=== PATIENT | female | born 1960 | race Caucasian/White ===

== ENCOUNTER 2020-12-18 20:33 | Inpatient (IN) | payer BC ==
[~2020-12-18] VITALS: Ht 154.9 cm; Wt 60.8 kg
[~2020-12-18 20:33] MED LIST: ACET325; ACYC800 PO; ALBU90OI INH; ASPI81CH PO; ASPI81EC; CITA20 PO; CRUTCH4 USE; CYCL10 PO; ESCI20; ESTR1; HYDACE5 PO; MULVITMIND; NAPR500 PO; NAPR550 PO; OMEP10ER; OMEP20ER PO; Prednisone50 MG PO; RXOXYACE PO; TIOT18 IH; Vistaril50 MG PO; Zithromax250 MG PO
[2020-12-18 21:10] LABS: BASOPHILS ABSOLUTE AUTO 0.04 K/mm3 (0.00-0.23); BASOPHILS PERCENT AUTO 0 % (0-2); EOSINOPHILS ABSOLUTE AUTO 0.08 K/mm3 (0.00-0.68); EOSINOPHILS PERCENT AUTO 1 % (0-6); Hematocrit 47.1 % (33.0-51.0); Hemoglobin 15.4 g/dL (11.5-16.0); IMMATURE GRAN ABSOLUTE AUTO 0.03 K/mm3 (0.00-0.10); IMMATURE GRAN PERCENT AUTO 0 % (0-1); LYMPHOCYTES ABSOLUTE AUTO 3.37 K/mm3 (0.84-5.20); LYMPHOCYTES PERCENT AUTO 31 % (21-46); MONOCYTES ABSOLUTE AUTO 0.77 K/mm3 (0.16-1.47); MONOCYTES PERCENT AUTO 7 % (4-13); Mean Corpuscular HGB 28.4 pg (26.0-34.0); Mean Corpuscular HGB Conc 32.7 g/dL (31.5-36.5); Mean Corpuscular Volume 87 fL (80-100); Mean Platelet Volume 10.3 fL (9.1-12.4); NEUTROPHILS ABSOLUTE AUTO 6.66 K/mm3 (1.96-9.15); NEUTROPHILS PERCENT AUTO 61 % (41-73); Platelet Count 314 K/mm3 (150-400); RDW Coefficient Variation 14.3 % (11.7-14.2); RDW Standard Deviation 45.6 fL (35.1-46.3); Red Blood Cell Count 5.43 M/mm3 (3.80-5.20); White Blood Cell Count 10.95 K/mm3 (4.00-11.30)
[2020-12-18 21:30] LABS: Alanine Aminotransfer (ALT/SGP 19 U/L (12-78); Albumin/Globulin Ratio 1.2 (0.8-1.8); Alk Phos 93 U/L (50-136); Anion Gap 7 mmol/L (6-16); Aspartate Aminotrans (AST/SGOT 13 U/L (12-37); Bilirubin, Total 0.3 mg/dL (0.1-1.0); Blood Urea Nitrogen 15 mg/dL (8-24); Bun/Creatinine Ratio 24.2 (12.0-20.0); CO2, Blood 23 mmol/L (21-32); Calcium, Blood 9.5 mg/dL (8.5-10.1); Chloride, Blood 109 mmol/L (98-108); Creatinine, Blood 0.62 mg/dL (0.40-1.00); Globulin, Blood 3.3 g/dL (2.2-4.0); Glomerular Filtration Rate >60 (60-); Glucose, Blood 113 mg/dL (70-99); Potassium, Blood 3.9 mmol/L (3.5-5.5); Sodium, Blood 139 mmol/L (136-145); Total Protein, Blood 7.3 g/dL (6.4-8.2); Troponin I <0.015 ng/mL (0.000-0.040)
[2020-12-19 01:00] LABS: SARS-Cov-2 (COVID-19) PCR, MMC NEGATIVE (NEGATIVE)
[2020-12-19 01:03] LABS: Source, Urine Clean Catch
[2020-12-19 01:05] LABS: Bilirubin, Urine Neg (Neg); Blood, Urine Neg (Neg); Glucose Qualitative, Urine Neg (Neg); Ketones, Urine Neg (Neg); Leukocyte Esterase, Urine Neg (Neg); Nitrite, Urine Neg (Neg); Protein, Urine Neg (Neg); Urobilinogen, Urine NORM (Normal)
[2020-12-19 01:08] LABS: Appearance, Urine Clear (Clear); Color, Urine Yellow (P-Yellow)
--- NOTE | 2020-12-19 06:12 | NUR ---
PATIENTS IV INFILTRATED, NEW IV STARTED IN LH/20G. PATIENT TOLERATED IT WELL. CALL LIGHT WITHIN REACH.
--- NOTE | 2020-12-19 07:40 | NUR ---
PT AMBULATED WITH SBA TO BATHROOM. PT REFUSED TO USE WALKER OR W/C TO BATHROOM. PT VERY UPSET WHEN RN OFFERED TO USE W/C OR WALKER WHEN PT IS UP AND MOVING. PT FEARFUL OF LOOSING HER INDEPENDENCE. PT GETS AGGITATED WHENEVER PT FEELS THAT SHE IS LOOSING HER ABILITY TO WALK/MOVE INDEPENDENTLY, OR WITH TOO MUCH ASSISTANCE. PT WILL SETTLE DOWN AFTER RN ENCOURAGES PT WITH WORDS OF AFFIRMATION AND REMINDING PT THAT SHE IS DOING A GREAT JOB BEING MINDFUL OF HER ABILITY TO WALK/MOVE INDEPENDTLY. PT IS AOX3 AND WILL CALL FOR HELP VIA CALL LIGHT WHENEVER SHE NEEDS ASSISTANCE TO AMBULATE OR MOVE OUT OF BED. CALL LIGHT WITHIN REACH.
--- NOTE | 2020-12-19 08:53 | NUR ---
PT AMBULATED TO BATHROOM WITH 2 STAFF SBA. PT AMBULATES INDEPENDENTLY WITH STAFF TO STANDBY FOR ASSISTANCE IF NEEDED. PT DID NOT EAT ANY BREAKFAST THIS MORNING. PT COMMUNICATES WELL. CALL LIGHT WITHIN REACH.
[2020-12-19 09:30] LABS: BASOPHILS ABSOLUTE AUTO 0.03 K/mm3 (0.00-0.23); BASOPHILS PERCENT AUTO 0 % (0-2); EOSINOPHILS ABSOLUTE AUTO 0.03 K/mm3 (0.00-0.68); EOSINOPHILS PERCENT AUTO 0 % (0-6); Hematocrit 45.1 % (33.0-51.0); Hemoglobin 14.7 g/dL (11.5-16.0); IMMATURE GRAN ABSOLUTE AUTO 0.02 K/mm3 (0.00-0.10); IMMATURE GRAN PERCENT AUTO 0 % (0-1); LYMPHOCYTES PERCENT AUTO 25 % (21-46); MONOCYTES ABSOLUTE AUTO 0.73 K/mm3 (0.16-1.47); MONOCYTES PERCENT AUTO 7 % (4-13); Mean Corpuscular HGB 28.4 pg (26.0-34.0); Mean Corpuscular HGB Conc 32.6 g/dL (31.5-36.5); Mean Corpuscular Volume 87 fL (80-100); Mean Platelet Volume 10.5 fL (9.1-12.4); NEUTROPHILS ABSOLUTE AUTO 7.01 K/mm3 (1.96-9.15); NEUTROPHILS PERCENT AUTO 67 % (41-73); Platelet Count 314 K/mm3 (150-400); RDW Coefficient Variation 14.2 % (11.7-14.2); RDW Standard Deviation 45.5 fL (35.1-46.3); Red Blood Cell Count 5.17 M/mm3 (3.80-5.20); White Blood Cell Count 10.42 K/mm3 (4.00-11.30)
--- NOTE | 2020-12-19 09:45 | NUR ---
PT TO MRI AT THIS TIME.
[2020-12-19 09:59] LABS: Alanine Aminotransfer (ALT/SGP 20 U/L (12-78); Albumin, Blood 3.7 g/dL (3.4-5.0); Albumin/Globulin Ratio 1.1 (0.8-1.8); Alk Phos 96 U/L (50-136); Anion Gap 5 mmol/L (6-16); Aspartate Aminotrans (AST/SGOT 9 U/L (12-37); Bilirubin, Total 0.4 mg/dL (0.1-1.0); Blood Urea Nitrogen 11 mg/dL (8-24); Bun/Creatinine Ratio 21.4 (12.0-20.0); CO2, Blood 26 mmol/L (21-32); Calcium, Blood 9.4 mg/dL (8.5-10.1); Chloride, Blood 111 mmol/L (98-108); Creatinine, Blood 0.51 mg/dL (0.40-1.00); Globulin, Blood 3.5 g/dL (2.2-4.0); Glomerular Filtration Rate >60 (60-); Glucose, Blood 140 mg/dL (70-99); Potassium, Blood 3.6 mmol/L (3.5-5.5); Sodium, Blood 142 mmol/L (136-145); Total Protein, Blood 7.2 g/dL (6.4-8.2)
--- NOTE | 2020-12-19 10:21 | NUR ---
PT BACK IN THE ROOM. CALL LIGHT WITHIN REACH.
--- NOTE | 2020-12-19 10:51 | NUR ---
PRODUCTION DEPARTMENT SUPERVISOR CAME TO VISIT PT TODAY, PT REFUSED TO HAVE TEST DONE, BUT LATER CHANGED HER MIND AND DECIDED TO HAVE ECHO WHILE HERE AT [facility]. PT VERY AGGITATED AND UPSET OVER THE PHONE WITH SON "RITO". PT KEEPS TELLING RITO OVER THE PHONE THAT SHE WANTS TO GO HOME. AFTER PT SPOKE TO RITO, RN WENT TO PT'S ROOM AND SPOKE TO PT. PT STATED TO RN THAT SHE HASN'T SLEPT FOR OVER A WEEK AND IS VERY TIRED. RN CALLED MD AND LEFT A MESSAGE TO MD FOR SOME ANTI-ANXIETY MEDICATION. RN WAITING FOR A CALL BACK FROM . [facility] WAS ALSO CALLED TO COME BACK AND GET ECHO DONE PER PT REQUEST. RITO ALSO CALLED TO SPEAK TO RN. RITO (PT'S SON) REQUEST TO HAVE SOME MEDICATION TO GIVE TO PT TO HELP WITH ANXIETY AND AGGITATION. PT NOW RESTING IN ROOM ATTEMPTING TO GET SOME SLEEP. CALL LIGHT WITHIN REACH. RN WAITING FOR MD TO CALL BACK FOR FURTHER ORDERS.
--- NOTE | 2020-12-19 11:08 | NUR ---
CHARGE COORDINATOR IN THE ROOM AT THIS TIME TO GET ECHO TEST DONE. PT COOPERATIVE.
--- NOTE | 2020-12-19 11:48 | NUR ---
echocardiogram complete
--- NOTE | 2020-12-19 11:51 | NUR ---
Introduction: PT was refered for visit by nursing staff. Assessment: PT was in a center room with no windows. PT presented upright, just finishing a meal with a jovial demeanor. PT related early life, growing up on [place] farm in [place]. 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 PT spoke of close family, mostly a sister, that she was in contact with. When asked about other family and children, PT would avoid the topic. PT was very calm and accepting of current situation throughout visit. PT showed hope and a willingness to heal, through colorful drawings that were shared and displayed on PT room door. Intervention: Offered prayer. Outcome: PT accepted prayer with gratitude. Built Spiritual Care Team relationship for follow-up. Follow-Up: As needed or requested.
--- NOTE | 2020-12-19 11:51 | NUR ---
MAINTAINABILITY ENGINEER DONE IN PT ROOM. PT AT THIS TIME EATING LUNCH. RN STILL WAITING FOR MD TO CALL BACK. RN EXPLAINED TO PATIENT THAT MD STILL NEEDS TO SEE HER AND SPEAK TO HER BEFORE MAKING ANY DESICIONS ON FURTHER PLANS WITH STAYING LONGER OR GOING HOME. CALL LIGHT WITHIN REACH. RN ATTEMPTED TO CALL MD FOR THE SECOND TIME AND REACHED VOICEMAIL.
--- NOTE | 2020-12-19 12:57 | NUR ---
PT REQUESTED TO GET SOME FRESH AIR AND ASKED IF SHE CAN SIT OUT IN THE LOBBY. PT WHEELED VIA W/C TO SIT OUT IN THE LOBBY WITH A STAFF TO SIT WITH PT WHILE PT RESTS AND WATCHES TV. PT AWAKE AND ALERT AND COOPERATIVE. WILL CONTINUE TO MONITOR.
--- NOTE | 2020-12-19 13:41 | NUR ---
DR DOUGLAS IN ROOM TO SPEAK WITH PT. NEW ORDERS GIVEN FOR SOME TESTS. PT STATED UNDERSTANDING. ORDERS FOR ANGIORAM AND PT EVAL GIVEN. PT DOES NOT WANT TO STAY OVER NIGHT TONIGHT BUT STATED PT WILL MORE THAN LIKELY STAY ANOTHER NIGHT BUT MD WILL EVALUATE PT AGAIN AFTER ALL THE TESTS ARE DONE. PT NOW RESTING IN THE ROOM, LYING DOWN ON THE BED WITH CALL LIGHT WITHIN REACH.
--- NOTE | 2020-12-19 13:59 | NUR ---
COST ANALYST IN ROOM AT THIS TIME TO VISIT WITH PATIENT.
--- NOTE | 2020-12-19 14:21 | NUR ---
PHYSICAL THERAPY IN ROOM AT THIS TIME TO SEE PT.
--- NOTE | 2020-12-19 14:48 | NUR ---
Patient is sitting up in bed and alert. Patient tells me about her "mini strokes and possible surgery that she may be facing. She talks about her spouse's recent penitentiary from [facility] and their plans to travel and so it is important for her that she recover well. Patient has a very strong Adventist anne and is encouraged by conversation centered around the Bible and by prayer. I provide therapeutic listening, pastoral crisis counselor, recitation of scripture and prayer. Patient responds well and shows signs of being encouraged in her anne. I will continue to remain available to patient and family.
--- NOTE | 2020-12-19 15:39 | NUR ---
PT VERY UPSET AT THIS TIME. INSTRUCTOR PHYSICAL EDUCATION IN THE ROOM. PT REFUSE TO HAVE ANY ANTI-ANXIETY MEDICATION AT THIS TIME.
--- NOTE | 2020-12-19 16:22 | NUR ---
PT LEFT AGAINST MEDICAL ADVICE TODAY AROUND 1600. PHYSICAL THERAPY/OCUPATIONAL THERAPY, CHAPLAINS, TERMINAL CARMAN, AND RN ALL TALKED WITH PT CONCERNING HER SAFETY. PT STILL REFUSES TO STAY IN THE HOSPITAL TONIGHT AND IS VERY ADAMANT ABOUT GOING HOME TONIGHT. DR. DOUGLAS WAS CALLED AND NURSING DIRECTOR SEARCH NOTIFIED ABOUT PT'S DECISION TO GO AMA. PT AWARE OF THE RISKS AT HOME AND PT AWARE OF THE OTHER OPTIONS GIVEN TO HER BY TERMINAL CARMAN. AFTER PT TALKED WITH HER FAMILY, PT STILL DECIDED TO GO HOME AND GO AMA. IV REMOVED AND PT WAS WHEELED OUT TO HER DAUGHTER WAITING OUTSIDE TO TAKE HER HOME. PT AWARE THAT CALLED IN A PRESCRIPTION TO HER PHARMACY AND RN SHARON WAS ABLE TO GET PT AN APPOINTMENT WITH NEW PCP NIR WILLOUGHBY AT 3PM ON SUNDAY 12/24.
--- NOTE | 2020-12-19 16:25 | NUR ---
Introduction: RN suggested a visit from the Plaster Caster. Assessment: 60 y/o female presented sitting up on the side of the bed with distressed look on her face. Pt begam to talk about,"I just want to go home one night". At that moment, a nurse walked in the room. While pt was speaking the nurse said,"here are your options" The nurse proceeded to speak to the pt about her options as the pt became agitated. The pt responded by saying, "I can't go to [facility]". The nurse paretted back what she heard the nurse say and then walked out to the nurse station to share what she was told by the pt. I walked back to the pt room. Pt began to cry repeating that she needs to go home. When inquired, Pt revealed that she had pets that were so important to her and she was concerned about them. Pt's nurse entered room. The son of the pt was called. The health of the pt was shared and pt and son made a decision. INtervention: Cultivated a relationship of care and support. Actively listened providing empathy and hope. Provided prayer according to pt anne tradition. Follow up for emotional and spiritual support as needed or requested.
--- NOTE | 2020-12-20 13:31 | NUR ---
PTS FAMILY (RITO MADRIGAL) CALLED BECAUSE RX'S WERE NOT AVAILABLE AT [facility] IN [place]. THIS RN SPOKE WITH RALPH IN CASE MANAGEMENT. DR. DOUGLAS GAVE APPROVAL TO CALL IN 3 PRESCRIPTIONS FOR PATIENT TO [facility] IN [place]. THIS RN CALLED IN ASPIRIN 324MG PO DAILY, PLAVIX 75MG PO DAILY, AND ATORVASTATIN 80MG PO DAILY. FAMILY WAS ALSO ASKING ABOUT PT GOING TO [facility] FOR PHYSICAL THERAPY. THIS RN EXPLAINED TO FAMILY AND SINCE PT LEFT AMA YESTERDAY, [facility] WOULDNT BE AN OPTION. FAMILY STATED THEY WILL BRING PATIENT BACK IN TO THE HOSPITAL FOR EVALUATION IF NEEDED.
== END 2020-12-19 16:22 | disposition left against medical advice (07) | DRG 65 ==
LOC: ER 20:33 → MEDS 20:34 → ORSCIP 20:34
PROVIDERS: Emergency Medicine; Physician Assistant; ADMIT Internal Medicine
DX: I63.89 Other cerebral infarction (principal); G81.94 Hemiplegia, unspecified affecting left nondominant side; R20.0 Anesthesia of skin; Z20.822 Contact with and (suspected) exposure to COVID-19; I65.22 Occlusion and stenosis of left carotid artery; J44.9 Chronic obstructive pulmonary disease, unspecified; H91.90 Unspecified hearing loss, unspecified ear; F17.210 Nicotine dependence, cigarettes, uncomplicated; Z88.5 Allergy status to narcotic agent; Z79.82 Long term (current) use of aspirin; Z79.52 Long term (current) use of systemic steroids; Z79.899 Other long term (current) drug therapy; Z85.828 Personal history of other malignant neoplasm of skin; Z71.6 Tobacco abuse counseling; Z90.710 Acquired absence of both cervix and uterus; Z98.890 Other specified postprocedural states
CPT/HCPCS: 36415; 70450; 70551; 80053; 81003; 84484; 85025; 93005; 93010; 93306; 93880; 96372; 96374; 97116; 97162; 99285-25; A9270; G0378; J1650; J7030; U0004

== ENCOUNTER 2020-12-20 14:49 | Emergency (ER) | payer BC ==
[~2020-12-20] VITALS: Ht 152.4 cm; Wt 54.4 kg
[2020-12-20 16:37] LABS: BASOPHILS ABSOLUTE AUTO 0.05 K/mm3 (0.00-0.23); BASOPHILS PERCENT AUTO 0 % (0-2); EOSINOPHILS ABSOLUTE AUTO 0.03 K/mm3 (0.00-0.68); EOSINOPHILS PERCENT AUTO 0 % (0-6); Hematocrit 45.1 % (33.0-51.0); Hemoglobin 14.6 g/dL (11.5-16.0); IMMATURE GRAN ABSOLUTE AUTO 0.06 K/mm3 (0.00-0.10); IMMATURE GRAN PERCENT AUTO 0 % (0-1); LYMPHOCYTES ABSOLUTE AUTO 2.42 K/mm3 (0.84-5.20); LYMPHOCYTES PERCENT AUTO 13 % (21-46); MONOCYTES ABSOLUTE AUTO 1.18 K/mm3 (0.16-1.47); MONOCYTES PERCENT AUTO 7 % (4-13); Mean Corpuscular HGB 28.3 pg (26.0-34.0); Mean Corpuscular HGB Conc 32.4 g/dL (31.5-36.5); Mean Corpuscular Volume 88 fL (80-100); Mean Platelet Volume 10.3 fL (9.1-12.4); NEUTROPHILS ABSOLUTE AUTO 14.42 K/mm3 (1.96-9.15); NEUTROPHILS PERCENT AUTO 79 % (41-73); NRBC ABSOLUTE 0.02 K/mm3 (0.00-0.02); NRBC Auto 0.1 /100 WBC (0.0-0.2); Platelet Count 314 K/mm3 (150-400); RDW Coefficient Variation 14.1 % (11.7-14.2); RDW Standard Deviation 45.2 fL (35.1-46.3); Red Blood Cell Count 5.15 M/mm3 (3.80-5.20); White Blood Cell Count 18.16 K/mm3 (4.00-11.30)
[2020-12-20 16:48] LABS: Alanine Aminotransfer (ALT/SGP 25 U/L (12-78); Albumin/Globulin Ratio 1.2 (0.8-1.8); Alk Phos 102 U/L (50-136); Anion Gap 8 mmol/L (6-16); Aspartate Aminotrans (AST/SGOT 22 U/L (12-37); Bilirubin, Total 0.4 mg/dL (0.1-1.0); Blood Urea Nitrogen 13 mg/dL (8-24); Bun/Creatinine Ratio 21.6 (12.0-20.0); CO2, Blood 22 mmol/L (21-32); Calcium, Blood 9.9 mg/dL (8.5-10.1); Chloride, Blood 109 mmol/L (98-108); Globulin, Blood 3.3 g/dL (2.2-4.0); Glomerular Filtration Rate >60 (60-); Glucose, Blood 109 mg/dL (70-99); Potassium, Blood 3.8 mmol/L (3.5-5.5); Sodium, Blood 139 mmol/L (136-145); Total Protein, Blood 7.3 g/dL (6.4-8.2)
== END 2020-12-20 19:17 | disposition home or self-care (01) ==
LOC: ER 14:49
PROVIDERS: Physician Assistant
DX: R51.9 Headache, unspecified (principal); I69.354 Hemiplegia and hemiparesis following cerebral infarction affecting left non-dominant side; J44.9 Chronic obstructive pulmonary disease, unspecified; F17.200 Nicotine dependence, unspecified, uncomplicated; Z88.5 Allergy status to narcotic agent; Z85.828 Personal history of other malignant neoplasm of skin
CPT/HCPCS: 70450; 80053; 85025; 96365; 96375; 99284-25; J1200; J2765; J3475

== ENCOUNTER 2021-07-02 19:36 | Emergency (ER) | payer BC ==
[~2021-07-02] VITALS: Ht 154.9 cm; Wt 57.6 kg
[2021-07-02] MEDS ORDERED: ESCI20 PO (19:47)
[2021-07-02] MEDS ORDERED: ASPI81CH PO (19:47)
[2021-07-02] MEDS ORDERED: CLOP75 PO (19:48)
[2021-07-02 21:13] LABS: BASOPHILS ABSOLUTE AUTO 0.03 K/mm3 (0.00-0.23); BASOPHILS PERCENT AUTO 0 % (0-2); EOSINOPHILS ABSOLUTE AUTO 0.16 K/mm3 (0.00-0.68); EOSINOPHILS PERCENT AUTO 2 % (0-6); Hematocrit 42.2 % (33.0-51.0); Hemoglobin 13.7 g/dL (11.5-16.0); IMMATURE GRAN ABSOLUTE AUTO 0.02 K/mm3 (0.00-0.10); IMMATURE GRAN PERCENT AUTO 0 % (0-1); LYMPHOCYTES ABSOLUTE AUTO 3.22 K/mm3 (0.84-5.20); LYMPHOCYTES PERCENT AUTO 38 % (21-46); MONOCYTES ABSOLUTE AUTO 0.53 K/mm3 (0.16-1.47); MONOCYTES PERCENT AUTO 6 % (4-13); Mean Corpuscular HGB 29.1 pg (26.0-34.0); Mean Corpuscular HGB Conc 32.5 g/dL (31.5-36.5); Mean Corpuscular Volume 90 fL (80-100); Mean Platelet Volume 10.6 fL (9.1-12.4); NEUTROPHILS ABSOLUTE AUTO 4.56 K/mm3 (1.96-9.15); NEUTROPHILS PERCENT AUTO 54 % (41-73); Platelet Count 298 K/mm3 (150-400); RDW Coefficient Variation 15.8 % (11.7-14.2); RDW Standard Deviation 51.9 fL (35.1-46.3); White Blood Cell Count 8.52 K/mm3 (4.00-11.30)
[2021-07-02 21:35] LABS: Alanine Aminotransfer (ALT/SGP 28 U/L (12-78); Albumin, Blood 3.8 g/dL (3.4-5.0); Albumin/Globulin Ratio 1.3 (0.8-1.8); Alk Phos 70 U/L (50-136); Anion Gap 7 mmol/L (6-16); Aspartate Aminotrans (AST/SGOT 21 U/L (12-37); Bilirubin, Total 0.3 mg/dL (0.1-1.0); Blood Urea Nitrogen 17 mg/dL (8-24); Bun/Creatinine Ratio 28.3 (12.0-20.0); CO2, Blood 28 mmol/L (21-32); Calcium, Blood 9.2 mg/dL (8.5-10.1); Chloride, Blood 105 mmol/L (98-108); Glomerular Filtration Rate >60 (60-); Glucose, Blood 168 mg/dL (70-99); Magnesium, Blood 2.1 mg/dL (1.6-2.4); Potassium, Blood 3.6 mmol/L (3.5-5.5); Sodium, Blood 140 mmol/L (136-145); Total Protein, Blood 6.8 g/dL (6.4-8.2)
[2021-07-02 21:44] LABS: Influenza A, PCR NEGATIVE (NEGATIVE); Influenza B, PCR NEGATIVE (NEGATIVE); Resp Syncytial Virus, PCR NEGATIVE (NEGATIVE); SARS-Cov-2 (COVID-19) PCR, MMC NEGATIVE (NEGATIVE)
[2021-07-03] MEDS ORDERED: PRED20 PO (00:39)
[2021-07-03] MEDS ORDERED: AZIT250 PO (00:39)
== END 2021-07-03 00:57 | disposition home or self-care (01) ==
LOC: ER 19:36
PROVIDERS: Student in an Organized Health Care Education/Training Program
DX: J44.1 Chronic obstructive pulmonary disease with (acute) exacerbation (principal); Z20.822 Contact with and (suspected) exposure to COVID-19; F17.210 Nicotine dependence, cigarettes, uncomplicated; Z79.899 Other long term (current) drug therapy
CPT/HCPCS: 0241U; 36415; 71045; 80053; 83735; 84484; 85025; 93005; 93010; 94640; 96374; 96375; 99285-25; A9270; J1885; J2765; J7030; J7512

== ENCOUNTER 2021-07-20 19:53 | Observation (INO) | payer BC ==
[~2021-07-20] VITALS: Ht 154.9 cm; Wt 57.6 kg
[~2021-07-20 19:53] MED LIST changes: +AZIT250 PO; +CLOP75 PO; +ESCI20 PO; +PRED20 PO
[2021-07-20 20:29] LABS: BASOPHILS ABSOLUTE AUTO 0.04 K/mm3 (0.00-0.23); BASOPHILS PERCENT AUTO 0 % (0-2); EOSINOPHILS ABSOLUTE AUTO 0.17 K/mm3 (0.00-0.68); EOSINOPHILS PERCENT AUTO 2 % (0-6); Hematocrit 40.5 % (33.0-51.0); Hemoglobin 13.4 g/dL (11.5-16.0); IMMATURE GRAN ABSOLUTE AUTO 0.02 K/mm3 (0.00-0.10); IMMATURE GRAN PERCENT AUTO 0 % (0-1); LYMPHOCYTES ABSOLUTE AUTO 2.97 K/mm3 (0.84-5.20); LYMPHOCYTES PERCENT AUTO 32 % (21-46); MONOCYTES ABSOLUTE AUTO 0.66 K/mm3 (0.16-1.47); MONOCYTES PERCENT AUTO 7 % (4-13); Mean Corpuscular HGB 29.5 pg (26.0-34.0); Mean Corpuscular HGB Conc 33.1 g/dL (31.5-36.5); Mean Corpuscular Volume 89 fL (80-100); Mean Platelet Volume 10.3 fL (9.1-12.4); NEUTROPHILS ABSOLUTE AUTO 5.43 K/mm3 (1.96-9.15); NEUTROPHILS PERCENT AUTO 59 % (41-73); Platelet Count 282 K/mm3 (150-400); RDW Coefficient Variation 15.6 % (11.7-14.2); RDW Standard Deviation 52.1 fL (35.1-46.3); Red Blood Cell Count 4.54 M/mm3 (3.80-5.20); White Blood Cell Count 9.29 K/mm3 (4.00-11.30)
[2021-07-20] MEDS ORDERED: Lisinopril2.5 MG PO (20:29)
[2021-07-20] MEDS ORDERED: LIPITOR80 MG PO (20:30)
[2021-07-20 20:49] LABS: Alanine Aminotransfer (ALT/SGP 28 U/L (12-78); Albumin, Blood 3.5 g/dL (3.4-5.0); Albumin/Globulin Ratio 1.2 (0.8-1.8); Alk Phos 71 U/L (50-136); Anion Gap 6 mmol/L (6-16); Aspartate Aminotrans (AST/SGOT 12 U/L (12-37); Bilirubin, Total 0.5 mg/dL (0.1-1.0); Blood Urea Nitrogen 19 mg/dL (8-24); Bun/Creatinine Ratio 23.2 (12.0-20.0); CO2, Blood 24 mmol/L (21-32); Calcium, Blood 8.8 mg/dL (8.5-10.1); Chloride, Blood 108 mmol/L (98-108); Creatinine, Blood 0.82 mg/dL (0.40-1.00); Glomerular Filtration Rate >60 (60-); Glucose, Blood 109 mg/dL (70-99); Sodium, Blood 138 mmol/L (136-145); Total Protein, Blood 6.5 g/dL (6.4-8.2)
--- NOTE | 2021-07-21 01:03 | NUR ---
Received aptient to unit to 0035. Alert and oriented x's 4. Left sided weakness, minimal assist for transfers. Respirations even and unlabored, denies SOB and chest pain. Oriented patient to room and call bradford, verbalized understanding.
--- NOTE | 2021-07-21 06:12 | NUR ---
Alert and oriented x's 4. Denies chest pain or SOB. Slept well through night. 1 assist to BSC. Bed alarm on with low bed, call bradford in reach.
[2021-07-21] MEDS ORDERED: ASPI81CH PO (10:14)
--- NOTE | 2021-07-21 10:54 | NUR ---
PATIENT GIVEN WRITTEN AND ORAL TEACHING ABOUT MEDICATIONS, FOLLOW UP AND STROKE. PATIENT HAS NO FURTHER QUESTIONS AND IS AWAITING FAMILY TO PICK HER UP AND TAKE HER HOME.
== END 2021-07-21 11:25 | disposition home or self-care (01) ==
LOC: ER 19:53 → MEDS 19:54 → ENPENDDIS 07-21 09:44 → MEDS 07-21 11:25
PROVIDERS: Physician Assistant; ADMIT Internal Medicine
DX: G45.9 Transient cerebral ischemic attack, unspecified (principal); I69.354 Hemiplegia and hemiparesis following cerebral infarction affecting left non-dominant side; I10 Essential (primary) hypertension; J44.9 Chronic obstructive pulmonary disease, unspecified; F41.8 Other specified anxiety disorders; F17.210 Nicotine dependence, cigarettes, uncomplicated; Z85.828 Personal history of other malignant neoplasm of skin; Z88.5 Allergy status to narcotic agent
CPT/HCPCS: 36415; 70450; 80053; 82947; 84484; 85025; 93005; 93010; 97161; 97530; 99285-25; A9270; G0378

== ENCOUNTER 2021-11-05 22:53 | Emergency (ER) | payer BC ==
[~2021-11-05] VITALS: Ht 154.9 cm; Wt 56.2 kg
[~2021-11-05 22:53] MED LIST changes: +LIPITOR80 MG PO; +Lisinopril2.5 MG PO
[2021-12-01] MEDS ORDERED: CLOP75 PO (17:13)
[2021-12-01] MEDS ORDERED: HYDHCL25 PO (20:27)
[2021-12-01] MEDS ORDERED: ONDA4ODT MM (20:27)
== END 2021-11-06 00:39 | disposition home or self-care (01) ==
LOC: ER 22:53
DX: S40.012A Contusion of left shoulder, initial encounter (principal); S63.501A Unspecified sprain of right wrist, initial encounter; J44.9 Chronic obstructive pulmonary disease, unspecified; F17.210 Nicotine dependence, cigarettes, uncomplicated; W19.XXXA Unspecified fall, initial encounter; Z79.899 Other long term (current) drug therapy; Z79.82 Long term (current) use of aspirin
CPT/HCPCS: 73030; 73100; 99283-25; A9270

== ENCOUNTER → 2022-05-12 | Outpatient (CLI) | payer BC ==
[~2022-05-12] MED LIST changes: +HYDHCL25 PO; +ONDA4ODT MM
[2022-05-12 14:34] LABS: BASOPHILS ABSOLUTE AUTO 0.04 K/mm3 (0.00-0.23); BASOPHILS PERCENT AUTO 1 % (0-2); EOSINOPHILS ABSOLUTE AUTO 0.16 K/mm3 (0.00-0.68); EOSINOPHILS PERCENT AUTO 2 % (0-6); Hemoglobin 11.7 g/dL (11.5-16.0); IMMATURE GRAN ABSOLUTE AUTO 0.02 K/mm3 (0.00-0.10); IMMATURE GRAN PERCENT AUTO 0 % (0-1); LYMPHOCYTES PERCENT AUTO 32 % (21-46); MONOCYTES ABSOLUTE AUTO 0.55 K/mm3 (0.16-1.47); MONOCYTES PERCENT AUTO 7 % (4-13); Mean Corpuscular HGB 28.7 pg (26.0-34.0); Mean Corpuscular HGB Conc 32.5 g/dL (31.5-36.5); Mean Corpuscular Volume 89 fL (80-100); Mean Platelet Volume 10.4 fL (9.1-12.4); NEUTROPHILS ABSOLUTE AUTO 4.31 K/mm3 (1.96-9.15); NEUTROPHILS PERCENT AUTO 58 % (41-73); Platelet Count 262 K/mm3 (150-400); RDW Coefficient Variation 13.7 % (11.7-14.2); RDW Standard Deviation 44.7 fL (35.1-46.3); Red Blood Cell Count 4.07 M/mm3 (3.80-5.20); White Blood Cell Count 7.48 K/mm3 (4.00-11.30)
[2022-05-12 17:51] LABS: Calcium, Blood 9.4 mg/dL (8.5-10.1); Creatinine, Blood 0.65 mg/dL (0.40-1.00); Potassium, Blood 4.1 mmol/L (3.5-5.5)
== END | disposition home or self-care (01) ==
LOC: LAB SHORT 13:00
PROVIDERS: Nurse Practitioner Family
DX: Z13.0 Encounter for screening for diseases of the blood and blood-forming organs and certain disorders involving the immune mechanism (principal); Z13.228 Encounter for screening for other metabolic disorders; I63.231 Cerebral infarction due to unspecified occlusion or stenosis of right carotid arteries; I10 Essential (primary) hypertension; I74.9 Embolism and thrombosis of unspecified artery; R73.03 Prediabetes
CPT/HCPCS: 80048; 83036; 85025

== ENCOUNTER 2023-05-04 11:03 | Emergency (ER) | payer BC ==
[~2023-05-04] VITALS: Ht 154.9 cm; Wt 64.4 kg
[2023-05-04] MEDS ORDERED: METFORMIN HCL500 M3 PO (11:18)
[2023-05-04] MEDS ORDERED: Ventolin/Prove6.7 GM INH (11:18)
[2023-05-04] MEDS ORDERED: ESCI10 PO (11:18)
[2023-05-04 11:35] LABS: BASOPHILS ABSOLUTE AUTO 0.05 K/mm3 (0.00-0.23); BASOPHILS PERCENT AUTO 1 % (0-2); EOSINOPHILS ABSOLUTE AUTO 0.12 K/mm3 (0.00-0.68); EOSINOPHILS PERCENT AUTO 1 % (0-6); Hematocrit 36.2 % (33.0-51.0); Hemoglobin 11.6 g/dL (11.5-16.0); IMMATURE GRAN ABSOLUTE AUTO 0.02 K/mm3 (0.00-0.10); IMMATURE GRAN PERCENT AUTO 0 % (0-1); LYMPHOCYTES ABSOLUTE AUTO 2.93 K/mm3 (0.84-5.20); LYMPHOCYTES PERCENT AUTO 31 % (21-46); MONOCYTES ABSOLUTE AUTO 0.59 K/mm3 (0.16-1.47); MONOCYTES PERCENT AUTO 6 % (4-13); Mean Corpuscular HGB 26.7 pg (26.0-34.0); Mean Corpuscular Volume 83 fL (80-100); Mean Platelet Volume 10.4 fL (9.1-12.4); NEUTROPHILS ABSOLUTE AUTO 5.66 K/mm3 (1.96-9.15); NEUTROPHILS PERCENT AUTO 60 % (41-73); Platelet Count 300 K/mm3 (150-400); RDW Coefficient Variation 14.6 % (11.7-14.2); RDW Standard Deviation 44.1 fL (35.1-46.3); Red Blood Cell Count 4.34 M/mm3 (3.80-5.20); White Blood Cell Count 9.37 K/mm3 (4.00-11.30)
[2023-05-04 11:53] LABS: Albumin, Blood 3.8 g/dL (3.4-5.0); Albumin/Globulin Ratio 1.2 (0.8-1.8); Bilirubin, Total 0.4 mg/dL (0.1-1.0); Bun/Creatinine Ratio 32.5 (12.0-20.0); Calcium, Blood 9.9 mg/dL (8.5-10.1); Creatinine, Blood 0.55 mg/dL (0.40-1.00); Globulin, Blood 3.2 g/dL (2.2-4.0); Potassium, Blood 3.8 mmol/L (3.5-5.5)
[2023-05-04 14:08] VITALS: BP 158/71
== END 2023-05-04 14:16 | disposition home or self-care (01) ==
LOC: ER 11:03
PROVIDERS: Student in an Organized Health Care Education/Training Program
DX: R07.9 Chest pain, unspecified (principal); F41.9 Anxiety disorder, unspecified; J44.9 Chronic obstructive pulmonary disease, unspecified; F17.210 Nicotine dependence, cigarettes, uncomplicated; Z88.5 Allergy status to narcotic agent; Z79.899 Other long term (current) drug therapy; Z79.82 Long term (current) use of aspirin; Z79.02 Long term (current) use of antithrombotics/antiplatelets
CPT/HCPCS: 71045; 80053; 83735; 84484; 85025; 93005; 93010; 99285-25

== ENCOUNTER 2024-03-24 19:34 | Emergency (ER) | payer BC ==
[~2024-03-24] VITALS: Ht 154.9 cm; Wt 60.8 kg
[~2024-03-24 19:34] MED LIST changes: +B-12500 MC2; +ESCI10 PO; +METF500; +METFORMIN HCL500 M3 PO; +Ventolin/Prove6.7 GM INH; +WOMEN MULTIVIT1 EAC1
[2024-03-24 19:44] VITALS: BP 160/91
[2024-03-24 21:07] LABS: Albumin, Blood 3.5 g/dL (3.4-5.0); Albumin/Globulin Ratio 1.2 (0.8-1.8); Bilirubin, Total 0.2 mg/dL (0.1-1.0); Bun/Creatinine Ratio 19.5 (12.0-20.0); Calcium, Blood 9.3 mg/dL (8.5-10.1); Creatinine, Blood 0.77 mg/dL (0.40-1.00); Potassium, Blood 4.1 mmol/L (3.5-5.5); Total Protein, Blood 6.5 g/dL (6.4-8.2)
[2024-03-24 21:08] LABS: BASOPHILS ABSOLUTE AUTO 0.04 K/mm3 (0.00-0.23); BASOPHILS PERCENT AUTO 0 % (0-2); EOSINOPHILS ABSOLUTE AUTO 0.17 K/mm3 (0.00-0.68); EOSINOPHILS PERCENT AUTO 2 % (0-6); Hematocrit 39.5 % (33.0-51.0); Hemoglobin 12.6 g/dL (11.5-16.0); IMMATURE GRAN ABSOLUTE AUTO 0.02 K/mm3 (0.00-0.10); IMMATURE GRAN PERCENT AUTO 0 % (0-1); LYMPHOCYTES ABSOLUTE AUTO 3.83 K/mm3 (0.84-5.20); LYMPHOCYTES PERCENT AUTO 39 % (21-46); MONOCYTES ABSOLUTE AUTO 0.61 K/mm3 (0.16-1.47); MONOCYTES PERCENT AUTO 6 % (4-13); Mean Corpuscular HGB 27.5 pg (26.0-34.0); Mean Corpuscular HGB Conc 31.9 g/dL (31.5-36.5); Mean Corpuscular Volume 86 fL (80-100); Mean Platelet Volume 10.5 fL (9.1-12.4); NEUTROPHILS ABSOLUTE AUTO 5.24 K/mm3 (1.96-9.15); NEUTROPHILS PERCENT AUTO 53 % (41-73); Platelet Count 295 K/mm3 (150-400); RDW Coefficient Variation 14.6 % (11.7-14.2); RDW Standard Deviation 46.1 fL (35.1-46.3); Red Blood Cell Count 4.59 M/mm3 (3.80-5.20); White Blood Cell Count 9.91 K/mm3 (4.00-11.30)
== END 2024-03-24 20:53 | disposition left against medical advice (07) ==
LOC: ER 19:34
PROVIDERS: Emergency Medicine
DX: Z53.21 Procedure and treatment not carried out due to patient leaving prior to being seen by health care provider (principal)
CPT/HCPCS: 70450; 80053; 84484; 85025; 93005; 93010

== ENCOUNTER 2024-05-09 18:26 | Emergency (ER) | payer BC ==
[~2024-05-09] VITALS: Ht 154.9 cm; Wt 64.9 kg
[2024-05-09 19:10] LABS: BASOPHILS ABSOLUTE AUTO 0.07 K/mm3 (0.00-0.23); BASOPHILS PERCENT AUTO 1 % (0-2); EOSINOPHILS ABSOLUTE AUTO 0.14 K/mm3 (0.00-0.68); EOSINOPHILS PERCENT AUTO 1 % (0-6); Hematocrit 43.4 % (33.0-51.0); IMMATURE GRAN ABSOLUTE AUTO 0.03 K/mm3 (0.00-0.10); IMMATURE GRAN PERCENT AUTO 0 % (0-1); LYMPHOCYTES ABSOLUTE AUTO 3.01 K/mm3 (0.84-5.20); LYMPHOCYTES PERCENT AUTO 28 % (21-46); MONOCYTES ABSOLUTE AUTO 0.65 K/mm3 (0.16-1.47); MONOCYTES PERCENT AUTO 6 % (4-13); Mean Corpuscular HGB 27.1 pg (26.0-34.0); Mean Corpuscular HGB Conc 32.3 g/dL (31.5-36.5); Mean Corpuscular Volume 84 fL (80-100); Mean Platelet Volume 9.6 fL (9.1-12.4); NEUTROPHILS ABSOLUTE AUTO 7.02 K/mm3 (1.96-9.15); NEUTROPHILS PERCENT AUTO 64 % (41-73); Platelet Count 350 K/mm3 (150-400); RDW Coefficient Variation 13.8 % (11.7-14.2); RDW Standard Deviation 42.4 fL (35.1-46.3); Red Blood Cell Count 5.17 M/mm3 (3.80-5.20); White Blood Cell Count 10.92 K/mm3 (4.00-11.30)
[2024-05-09 19:36] LABS: Albumin, Blood 3.6 g/dL (3.4-5.0); Albumin/Globulin Ratio 0.9 (0.8-1.8); Bilirubin, Total 0.5 mg/dL (0.1-1.0); Bun/Creatinine Ratio 22.2 (12.0-20.0); Calcium, Blood 10.4 mg/dL (8.5-10.1); Creatinine, Blood 0.72 mg/dL (0.40-1.00); Globulin, Blood 3.9 g/dL (2.2-4.0); Potassium, Blood 4.1 mmol/L (3.5-5.5); Total Protein, Blood 7.5 g/dL (6.4-8.2)
[2024-05-09 20:08] LABS: Source, Urine Clean Catch
[2024-05-09 20:12] LABS: Appearance, Urine Clear (Clear); Bilirubin, Urine Neg (Neg); Blood, Urine Neg (Neg); Color, Urine Yellow (P-Yellow); Glucose Qualitative, Urine Neg (Neg); Ketones, Urine Neg (Neg); Leukocyte Esterase, Urine Neg (Neg); Nitrite, Urine Neg (Neg); Protein, Urine 1+ (Neg); Specific Gravity, Urine 1.025 (1.003-1.022); Urobilinogen, Urine NORM (Normal)
[2024-05-09] MEDS ORDERED: Lactated Ringer's 1,000 ML IV ONE (20:15)
[2024-05-09] MEDS ORDERED: Ondansetron HCl 2 MG / ML 2ML Vial IV ONE (20:20)
[2024-05-09] MEDS ORDERED: Acetaminophen 500 MG Tab PO ONE (20:20)
[2024-05-09] MEDS ORDERED: Methocarbamol 500 MG Tab PO ONE (22:30)
[2024-05-09] MEDS ORDERED: Methocarbamol500 MG PO (22:35)
[2024-05-09 22:53] VITALS: BP 152/85
== END 2024-05-09 23:00 | disposition home or self-care (01) ==
LOC: ER 18:26
PROVIDERS: Student in an Organized Health Care Education/Training Program
DX: M62.830 Muscle spasm of back (principal); J44.9 Chronic obstructive pulmonary disease, unspecified; F17.210 Nicotine dependence, cigarettes, uncomplicated; Z88.5 Allergy status to narcotic agent; Z91.018 Allergy to other foods; Z79.82 Long term (current) use of aspirin; Z79.84 Long term (current) use of oral hypoglycemic drugs; Z79.899 Other long term (current) drug therapy
CPT/HCPCS: 74177; 80053; 84484; 85025; 93005; 93010; 96374-59; 99284-25; A9270; J2405; Q9967

== ENCOUNTER 2024-12-10 13:56 | Emergency (ER) | payer BC ==
[~2024-12-10] VITALS: Ht 152.4 cm; Wt 62.1 kg
[~2024-12-10 13:56] MED LIST changes: +Methocarbamol500 MG PO
[2024-12-10 14:27] VITALS: BP 129/92
[2024-12-10 15:05] LABS: BASOPHILS ABSOLUTE AUTO 0.05 K/mm3 (0.00-0.23); BASOPHILS PERCENT AUTO 1 % (0-2); EOSINOPHILS ABSOLUTE AUTO 0.17 K/mm3 (0.00-0.68); EOSINOPHILS PERCENT AUTO 2 % (0-6); Hematocrit 41.1 % (33.0-51.0); Hemoglobin 13.3 g/dL (11.5-16.0); IMMATURE GRAN ABSOLUTE AUTO 0.02 K/mm3 (0.00-0.10); IMMATURE GRAN PERCENT AUTO 0 % (0-1); LYMPHOCYTES ABSOLUTE AUTO 2.37 K/mm3 (0.84-5.20); LYMPHOCYTES PERCENT AUTO 29 % (21-46); MONOCYTES ABSOLUTE AUTO 0.53 K/mm3 (0.16-1.47); MONOCYTES PERCENT AUTO 7 % (4-13); Mean Corpuscular HGB Conc 32.4 g/dL (31.5-36.5); Mean Corpuscular Volume 83 fL (80-100); NEUTROPHILS ABSOLUTE AUTO 4.93 K/mm3 (1.96-9.15); NEUTROPHILS PERCENT AUTO 61 % (41-73); NRBC ABSOLUTE 0.00 K/mm3 (0.00-0.02); NRBC Auto 0.0 /100 WBC (0.0-0.2); Platelet Count 294 K/mm3 (150-400); RDW Coefficient Variation 14.5 % (11.7-14.2); RDW Standard Deviation 44.2 fL (35.1-46.3)
[2024-12-10 15:37] LABS: Alanine Aminotransfer (ALT/SGP 26.0 U/L (12-78); Albumin, Blood 3.6 g/dL (3.4-5.0); Albumin/Globulin Ratio 1.1 (0.8-1.8); Anion Gap 6.0 mmol/L (3-11); Aspartate Aminotrans (AST/SGOT 17.0 U/L (12-37); Bilirubin, Total 0.3 mg/dL (0.1-1.0); Blood Urea Nitrogen 20.0 mg/dL (8-24); CO2, Blood 25.0 mmol/L (21-32); Calcium, Blood 9.4 mg/dL (8.5-10.1); Chloride, Blood 109.0 mmol/L (98-108); Creatinine, Blood 0.81 mg/dL (0.40-1.00); Globulin, Blood 3.3 g/dL (2.2-4.0); Glucose, Blood 150.0 mg/dL (70-99); Magnesium, Blood 2.1 mg/dL (1.6-2.4); Potassium, Blood 3.7 mmol/L (3.5-5.5); Sodium, Blood 136.0 mmol/L (136-145); Total Protein, Blood 6.9 g/dL (6.4-8.2)
[2024-12-10 16:03] LABS: Source, Urine Clean Catch
[2024-12-10 16:10] LABS: Bilirubin, Urine Neg (Neg); Glucose Qualitative, Urine Neg (Neg); Ketones, Urine Neg (Neg); Leukocyte Esterase, Urine Neg (Neg); Protein, Urine Neg (Neg); Specific Gravity, Urine 1.005 (1.003-1.022); Urobilinogen, Urine NORM (Normal)
[2024-12-10 16:11] LABS: Color, Urine Pale Yellow (P-Yellow)
== END 2024-12-10 16:06 | disposition home or self-care (01) ==
LOC: ER 13:56
PROVIDERS: Student in an Organized Health Care Education/Training Program
DX: E11.65 Type 2 diabetes mellitus with hyperglycemia (principal); R42 Dizziness and giddiness; J44.9 Chronic obstructive pulmonary disease, unspecified; F17.210 Nicotine dependence, cigarettes, uncomplicated; Z53.29 Procedure and treatment not carried out because of patient's decision for other reasons; Z88.5 Allergy status to narcotic agent; Z91.018 Allergy to other foods; Z79.82 Long term (current) use of aspirin; Z79.02 Long term (current) use of antithrombotics/antiplatelets; Z79.84 Long term (current) use of oral hypoglycemic drugs; Z79.899 Other long term (current) drug therapy
CPT/HCPCS: 80053; 81003; 82947; 83735; 84484; 85025; 93005; 93010; 99284-25

== ENCOUNTER 2025-01-20 15:52 | Observation (INO) | payer BC ==
[~2025-01-20] VITALS: Ht 152.4 cm; Wt 62.1 kg
[2025-01-20 16:06] VITALS: BP 150/81
[2025-01-20 16:51] LABS: BASOPHILS ABSOLUTE AUTO 0.03 K/mm3 (0.00-0.23); BASOPHILS PERCENT AUTO 0 % (0-2); EOSINOPHILS ABSOLUTE AUTO 0.16 K/mm3 (0.00-0.68); EOSINOPHILS PERCENT AUTO 2 % (0-6); Hematocrit 38.4 % (33.0-51.0); Hemoglobin 12.7 g/dL (11.5-16.0); IMMATURE GRAN ABSOLUTE AUTO 0.02 K/mm3 (0.00-0.10); IMMATURE GRAN PERCENT AUTO 0 % (0-1); LYMPHOCYTES ABSOLUTE AUTO 1.95 K/mm3 (0.84-5.20); LYMPHOCYTES PERCENT AUTO 26 % (21-46); MONOCYTES ABSOLUTE AUTO 0.51 K/mm3 (0.16-1.47); MONOCYTES PERCENT AUTO 7 % (4-13); Mean Corpuscular HGB Conc 33.1 g/dL (31.5-36.5); Mean Corpuscular Volume 83 fL (80-100); NEUTROPHILS ABSOLUTE AUTO 4.83 K/mm3 (1.96-9.15); NEUTROPHILS PERCENT AUTO 64 % (41-73); NRBC ABSOLUTE 0.00 K/mm3 (0.00-0.02); NRBC Auto 0.0 /100 WBC (0.0-0.2); Platelet Count 248 K/mm3 (150-400); RDW Coefficient Variation 14.6 % (11.7-14.2); RDW Standard Deviation 43.8 fL (35.1-46.3)
[2025-01-20 17:04] LABS: Ethanol (Alcohol), Blood, Med <3 mg/dL; Salicylate 5.9 mg/dL (2.8-20.0)
[2025-01-20 17:12] LABS: Acetaminophen, Random <2.0 ug/mL (10.0-30.0); Alanine Aminotransfer (ALT/SGP 37 U/L (12-78); Albumin, Blood 3.7 g/dL (3.4-5.0); Albumin/Globulin Ratio 1.1 (0.8-1.8); Anion Gap 7 mmol/L (3-11); Aspartate Aminotrans (AST/SGOT 28 U/L (12-37); Bilirubin, Total 0.5 mg/dL (0.1-1.0); Blood Urea Nitrogen 16 mg/dL (8-24); CO2, Blood 26 mmol/L (21-32); Calcium, Blood 9.6 mg/dL (8.5-10.1); Chloride, Blood 109 mmol/L (98-108); Creatinine, Blood 0.82 mg/dL (0.40-1.00); Globulin, Blood 3.3 g/dL (2.2-4.0); Glucose, Blood 107 mg/dL (70-99); Potassium, Blood 3.7 mmol/L (3.5-5.5); Sodium, Blood 138 mmol/L (136-145); Total Protein, Blood 7.0 g/dL (6.4-8.2)
[2025-01-20 17:57] LABS: Source, Urine Clean Catch
[2025-01-20 18:02] LABS: Bilirubin, Urine Neg (Neg); Color, Urine Yellow (P-Yellow); Glucose Qualitative, Urine Neg (Neg); Ketones, Urine 1+ (Neg); Leukocyte Esterase, Urine 1+ (Neg); Protein, Urine 1+ (Neg); Specific Gravity, Urine 1.010 (1.003-1.022); Urobilinogen, Urine NORM (Normal)
[2025-01-20 18:10] LABS: Red Blood Cells, Urine 0-2 /hpf (0-2)
[2025-01-20 18:16] LABS: U Amphetamine Screen DETECTED; U Barbituate Screen Not Detected; U Benzodiazapine Screen DETECTED; U Buprenorphine Screen Not Detected; U Cannabinoids Screen DETECTED; U Cocaine Screen Not Detected; U Methadone Screen Not Detected; U Methamphetamine Screen DETECTED; U Opiates Screen Not Detected; U Oxycodone Screen Not Detected; U Phencyclidine Screen Not Detected
== END 2025-01-20 23:50 | disposition home or self-care (01) ==
LOC: ER 15:52 → ERHOLD 15:53
PROVIDERS: ADMIT Student in an Organized Health Care Education/Training Program
DX: R45.851 Suicidal ideations (principal); J44.9 Chronic obstructive pulmonary disease, unspecified; F17.210 Nicotine dependence, cigarettes, uncomplicated; Z88.5 Allergy status to narcotic agent; Z91.018 Allergy to other foods; Z79.82 Long term (current) use of aspirin; Z79.84 Long term (current) use of oral hypoglycemic drugs; Z79.899 Other long term (current) drug therapy
CPT/HCPCS: 80053; 80320; 81001; 85025; 87086; 99285; G0378; G0480